=== PATIENT | female | born 1955 | race Caucasian/White ===

== ENCOUNTER 2022-09-18 16:09 | Inpatient (IN) | payer MEDICARE, BC ==
[~2022-09-18] VITALS: Ht 160 cm; Wt 61.0 kg
[2022-09-18 17:01] LABS: Basophils # (auto) 0 10 ^3/uL (0-0.2); Basophils % (auto) 0.2 % (0.0-2.0); Eosinophils # (auto) 0 10 ^3/uL (0-0.8); Eosinophils % (auto) 0.1 % (0.0-7.0); Hematocrit 30.3 % (36.0-46.0); Lymphocytes # (auto) 0.7 10 ^3/uL (0.4-5.4); Lymphocytes % (auto) 3.2 % (10.0-50.0); Mean Corpuscular Hemoglobin 27.9 pg (28.0-32.0); Mean Corpuscular Hgb Conc. 32.9 g/dL (32.0-36.0); Mean Corpuscular Volume 84.7 fL (80.0-100.0); Monocytes # (auto) 0.6 10 ^3/uL (0-1.3); Monocytes % (auto) 2.7 % (0.0-12.0); Neutrophils # (auto) 19.9 10 ^3/uL (1.6-8.6); Neutrophils % (auto) 93.8 % (37.0-80.0); Nucleated Red Blood Cells % 0.1 %; Red Blood Cells 3.58 10^6/uL (4.0-5.20); White Blood Cell 21.2 10^3/uL (4.4-10.8)
[2022-09-18 17:03] LABS: Red Cell Distribution Width 21.5 % (11.8-14.3)
[2022-09-18 17:25] LABS: Albumin 2.4 g/dL (3.4-5.0); Potassium 3.9 mmol/L (3.5-5.1)
[2022-09-18 17:28] LABS: Bilirubin, Total 0.9 mg/dL (0.2-1.0); Total Protein 6.5 g/dL (6.4-8.2)
[2022-09-18] MEDS ORDERED: MORPHINE SULFATE 4 MG/ML SYR/VIAL IV ONE (19:45)
[2022-09-18] MEDS ORDERED: PIPERACILLIN-TAZOB 2.25GM 50 ML IV ONE (21:15)
[2022-09-18] MEDS ORDERED: HYDROcodone-ACET 5/325MG TAB PO PRN (21:45)
[2022-09-18] MEDS ORDERED: ACETAMINOPHEN 325 MG TAB PO PRN (21:45)
[2022-09-18] MEDS ORDERED: TEMAZEPAM 15 MG CAP PO PRN (21:45)
[2022-09-19] MEDS: DOCUSATE SOD 100 MG CAP PO SCH ×3 (01:01→20:56)
[2022-09-19] MEDS: ONDANSETRON HCL 4 MG/2 ML VIAL IV PRN ×3 (01:02→15:15)
[2022-09-19] MEDS ORDERED: FUROSEMIDE 20 MG TAB PO SCH (06:00)
[2022-09-19 07:40] LABS: Basophils # (auto) 0 10 ^3/uL (0-0.2); Basophils % (auto) 0.1 % (0.0-2.0); Eosinophils # (auto) 0 10 ^3/uL (0-0.8); Eosinophils % (auto) 0.1 % (0.0-7.0); Hematocrit 29.1 % (36.0-46.0); Hemoglobin 9.6 g/dL (12.2-16.2); Lymphocytes # (auto) 0.5 10 ^3/uL (0.4-5.4); Lymphocytes % (auto) 2.7 % (10.0-50.0); Mean Corpuscular Hemoglobin 27.9 pg (28.0-32.0); Mean Corpuscular Hgb Conc. 33.2 g/dL (32.0-36.0); Mean Corpuscular Volume 84.2 fL (80.0-100.0); Monocytes # (auto) 0.7 10 ^3/uL (0-1.3); Monocytes % (auto) 3.5 % (0.0-12.0); Neutrophils # (auto) 18.1 10 ^3/uL (1.6-8.6); Neutrophils % (auto) 93.6 % (37.0-80.0); Red Blood Cells 3.46 10^6/uL (4.0-5.20); Red Cell Distribution Width 21.6 % (11.8-14.3); White Blood Cell 19.4 10^3/uL (4.4-10.8)
[2022-09-19 07:47] LABS: Albumin 2.4 g/dL (3.4-5.0); Calcium 8.9 mg/dL (8.5-10.1); Potassium 4.5 mmol/L (3.5-5.1)
[2022-09-19 07:51] LABS: BUN/Creatinine Ratio 24.4 (10.0-20.0); Bilirubin, Total 1.1 mg/dL (0.2-1.0); Total Protein 6.3 g/dL (6.4-8.2)
[2022-09-19 08:15] LABS: INR 1.23 (0.9-1.15); Partial Thromboplastin Time 41.2 sec (24.6-33.4)
[2022-09-19] MEDS: amLODIPine BESYLATE 5 MG TAB PO SCH (10:32)
[2022-09-19] MEDS: MORPHINE SULFATE INJ 2 MG/ml SYRG IV PRN ×2 (10:34→15:07)
[2022-09-19 15:38] VITALS: BP 132/73
[2022-09-19] MEDS ORDERED: DEXA4TAB PO (16:28)
[2022-09-19] MEDS ORDERED: LORA-1121 PO (16:28)
[2022-09-19] MEDS ORDERED: OMEP20TA PO (16:28)
[2022-09-19] MEDS ORDERED: HYDR-4902 PO (16:28)
[2022-09-19] MEDS ORDERED: FURO1TAB33 PO (16:28)
[2022-09-19] MEDS ORDERED: AMLO1TAB22 PO (16:28)
[2022-09-19] MEDS ORDERED: ESCI1TAB37 PO (16:28)
[2022-09-19] MEDS ORDERED: OLAN1TAB7 PO (16:28)
[2022-09-19] MEDS ORDERED: PROC10TA6 PO (16:28)
[2022-09-19] MEDS ORDERED: ONDANSETRON HCL 4 MG/2 ML VIAL IV PRN (16:30)
[2022-09-19] MEDS ORDERED: MORPHINE SULFATE INJ 2 MG/ml SYRG IV PRN (16:30)
[2022-09-19] MEDS ORDERED: ACETAMINOPHEN 500 MG TAB PO PRN (16:30)
[2022-09-19 17:00] VITALS: BP 118/66
[2022-09-19] MEDS: SODIUM CHLORIDE 0.9% 1,000 ML IV SCH (17:26)
[2022-09-19] MEDS: METOCLOPRAMIDE HCL 5MG/ml INJ 2ml VIAL IV SCH (20:52)
[2022-09-19] MEDS: LACTULOSE 20Gm/30ML SOLN PO SCH (20:56)
[2022-09-19 22:00] VITALS: BP 135/68
[2022-09-19] MEDS: OXYCODONE W/ ACETAMINOPHEN 5/325MG TABLET PO PRN (23:55)
[2022-09-20 02:59] LABS: Urine Bacteria NONE SEEN /hpf (None Seen); Urine Blood 1+ /uL (Negative); Urine Specific Gravity 1.008 (1.001-1.035); Urine WBC 1 /hpf (0 - 5)
[2022-09-20 05:00] VITALS: BP 133/73
[2022-09-20] MEDS: METOCLOPRAMIDE HCL 5MG/ml INJ 2ml VIAL IV SCH (06:05)
[2022-09-20] MEDS: LACTULOSE 20Gm/30ML SOLN PO SCH (06:06)
[2022-09-20] MEDS: OXYCODONE W/ ACETAMINOPHEN 5/325MG TABLET PO PRN (06:30)
[2022-09-20 07:53] VITALS: BP 132/73
[2022-09-20 08:00] VITALS: BP 116/52
[2022-09-20] MEDS ORDERED: PANTOPRAZOLE 40 MG TAB PO SCH (10:00)
[2022-09-20] MEDS ORDERED: ENOXAPARIN SOD 40 MG/0.4 ML SYRINGE SC SCH (10:00)
[2022-09-20] MEDS: amLODIPine BESYLATE 5 MG TAB PO SCH (10:20)
[2022-09-20] MEDS: DOCUSATE SOD 100 MG CAP PO SCH (10:20)
[2022-09-20] MEDS: SODIUM CHLORIDE 0.9% 1,000 ML IV SCH (10:25)
[2022-09-20] MEDS ORDERED: PERCOT PO (11:46)
[2022-09-20 12:00] VITALS: BP 142/67
[2022-09-20 12:13] VITALS: BP 116/52
== END 2022-09-20 13:15 | disposition home or self-care (01) | DRG 391 ==
LOC: ER 16:09 → OVERFLOW 21:50 → CENTRAL 09-19 15:08
PROVIDERS: ADMIT Nurse Practitioner; ATTEND Nurse Practitioner Acute Care
DX: K59.00 Constipation, unspecified (principal); E43 Unspecified severe protein-calorie malnutrition; C15.9 Malignant neoplasm of esophagus, unspecified; R65.10 Systemic inflammatory response syndrome (SIRS) of non-infectious origin without acute organ dysfunction; R18.8 Other ascites; I10 Essential (primary) hypertension; D72.829 Elevated white blood cell count, unspecified; R74.01 Elevation of levels of liver transaminase levels; Z85.01 Personal history of malignant neoplasm of esophagus; Z68.23 Body mass index [BMI] 23.0-23.9, adult; Z85.05 Personal history of malignant neoplasm of liver
CPT/HCPCS: 36415; 74176; 76705; 80053; 81001; 82140; 83605; 83690; 85025; 85610; 85730; 87040; 93005; 96365; 96375; G0378; J2405; J2543